=== PATIENT | female | born 1935 | race Hispanic/Latino ===

== ENCOUNTER 2018-02-03 11:23 | Emergency (ER) | payer OTHER ==
[~2018-02-03] VITALS: Ht 152.4 cm; Wt 65.3 kg
[~2018-02-03 11:23] MED LIST: AMLODIPINE BESYL5 MG PO; ASPIR 8181 MG PO; ATORVASTATIN CA20 MG PO; ATORVASTATIN PO; FUROSEMIDE40 MG PO; LEVEMIR100 UNIT/1 SC; METHIMAZOLE5 MG PO; METOPROLOL PO; METOPROLOL TART25 MG PO; NOVOLIN 70100 UNITS/ SQ; NOVOLOG SC; OMEPRAZOLE40 MG PO; PROMETHAZINE HC25 M1 PO; PYRIDOSTIGMINE60 MG PO; TAPAZOLE PO; ULTRAM50 MG PO
--- OUTSIDE RECORDS SUMMARY | 2018-02-03 11:25 | XMS REPORT | Clinical Summary ---
Author Author [facility] Address Unknown Phone Unavailable Care Team Providers Care Employee Services Manager Name Role Phone PCP Unavailable Allergies No Known Allergies Current Medications Prescription Sig. Disp. Refills Start End Date Status Date methIMAzole (TAPAZOLE) 5 Take 5 mg by mouth daily Active MG tablet . furosemide (LASIX) 20 MG Take 20 mg by mouth daily Active tablet . pyridostigmine (MESTINON) Take 60 mg by mouth 3 Active 60 mg tablet (three) times daily. insulin aspart (NOVOLOG) Inject subcutaneously 3 Active 100 unit/mL InPn (three) times daily with meals Sliding scale . insulin detemir (LEVEMIR) Inject 10 Units Active 100 unit/mL (3 mL) InPn subcutaneously nightly. injection omeprazole (PRILOSEC) 40 Take 40 mg by mouth Active MG capsule daily. metoprolol (LOPRESSOR) 25 Take 1 tablet (25 mg 60 tablet 0 06/09/19 06/09/19 MG tablet total) by mouth 2 (two) 17 18 times daily. atorvastatin (LIPITOR) 40 Take 1 tablet (40 mg 30 tablet 0 06/09/19 06/09/19 MG tablet total) by mouth daily. 17 18 aspirin 81 MG chewable Take 1 tablet (81 mg 30 tablet 0 06/09/19 06/09/19 tablet total) by mouth daily. 17 18 amLODIPine (NORVASC) 5 MG Take 1 tablet (5 mg 30 tablet 0 06/09/19 06/09/19 tablet total) by mouth daily. 17 18 Active Problems Problem Noted Date Left bundle branch block 06/06/2016 Chest pain on breathing 06/06/2016 Elevated troponin 06/06/2016 Severe sepsis (HCC) 06/06/2016 Acute renal failure (ARF) (HCC) 06/05/2016 Abdominal pain 06/04/2016 Fever 06/04/2016 Septic shock (HCC) 06/04/2016 Cholangitis 06/04/2016 Choledocholithiasis s/p ERCP, sphincterotomy 06/04/16 06/04/2016 Diabetes mellitus (HCC) Hyperlipidemia Thyroid disease Hypertension Social History Tobacco Use Types Packs/Day Years Used Date Former Smoker Sex Assigned at Date Recorded Not on file Last Filed Vital Signs Not on file Plan of Treatment Not on file Implants Implanted Type Area Upper Tier Device Expiration Model / Identifier Date Serial / Lot Stent Bili Duodenal [id number] Stents-Per [employer] 07/16/2017 [id number] / - [id number] ipheral / Implanted: Qty: 1 on 06/04/2016 by [id number] Shamir De La Rosa MD Results Not on fileafter 02/02/2017
--- OUTSIDE RECORDS SUMMARY | 2018-02-03 11:26 | XMS REPORT ---
Author [facility] Address Unknown Phone Unavailable Care Team Providers Care Tool Shaper Set Up Operator Name Role Phone CONSUELO HENRY Unavailable Unavailable Problems This patient has no known problems. Allergies, Adverse Reactions, Alerts This patient has no known allergies or adverse reactions. Medications This patient has no known medications. Results Test Description Test Time Test Comments Text Results Atomic Results Result Comments POCT-GLUCOSE METER 2016-06-09 12:41:00 POC-GLUCOSE METER (BEAKER) (test trrz=2342) 175 mg/dL 70-110 TESTED AT [place] [address] BLOOD [id number] 10:00:00* Test Item Value Reference Range Comments CULTURE (BEAKER) (test zyqu=4702) No growth in 5 days BLOOD [id number] 10:00:00* Test Item Value Reference Range Comments CULTURE (BEAKER) (test dgui=5814) No growth in 5 days HEMOGLOBIN [id number] 09:06:00* Test Item Value Reference Range Comments HEMOGLOBIN A1C (BEAKER) (test ohzv=149) 6.0 % 4.3-6.1 POCT-GLUCOSE [id number] 07:43:00* Test Item Value Reference Range Comments POC-GLUCOSE METER (BEAKER) (test lcby=8908) 110 mg/dL 70-110 TESTED AT [address] [address] CBC W/PLT COUNT & AUTO [id number] 07:16:00* Test Item Value Reference Range Comments WHITE BLOOD CELL COUNT (BEAKER) (test hdyz=877) 7.5 K/ L 4.0-10.0 RED BLOOD CELL COUNT (BEAKER) (test xanc=684) 3.03 M/ L 4.00-5.00 HEMOGLOBIN (BEAKER) (test swhz=459) 9.1 GM/DL 12.0-15.0 HEMATOCRIT (BEAKER) (test bxgc=364) 27.5 % 36.0-45.0 MEAN CORPUSCULAR VOLUME (BEAKER) (test hdhv=303) 90.8 fL 82.0-99.0 MEAN CORPUSCULAR HEMOGLOBIN (BEAKER) (test iooi=062) 29.9 pg 27.0-33.0 MEAN CORPUSCULAR HEMOGLOBIN CONC (BEAKER) (test snvz=345) 33.0 GM/DL 32.0-36.0 RED CELL DISTRIBUTION WIDTH (BEAKER) (test iniu=386) 12.0 % 10.3-14.2 PLATELET COUNT (BEAKER) (test hndy=620) 170 K/CU MM 150-430 MEAN PLATELET VOLUME (BEAKER) (test rixb=503) 7.3 fL 6.5-10.5 NUCLEATED RED BLOOD CELLS (BEAKER) (test zjjn=469) 0 /100 WBC 0-0 NEUTROPHILS RELATIVE PERCENT (BEAKER) (test clxd=321) 53 % LYMPHOCYTES RELATIVE PERCENT (BEAKER) (test ydae=822) 33 % MONOCYTES RELATIVE PERCENT (BEAKER) (test sjuj=007) 7 % EOSINOPHILS RELATIVE PERCENT (BEAKER) (test fito=190) 6 % BASOPHILS RELATIVE PERCENT (BEAKER) (test ydab=080) 1 % NEUTROPHILS ABSOLUTE COUNT (BEAKER) (test jnph=910) 3.99 K/ L 1.80-8.00 LYMPHOCYTES ABSOLUTE COUNT (BEAKER) (test umdg=149) 2.47 K/ L 1.48-4.50 MONOCYTES ABSOLUTE COUNT (BEAKER) (test wati=112) 0.55 K/ L 0.00-1.30 EOSINOPHILS ABSOLUTE COUNT (BEAKER) (test dqnb=122) 0.47 K/ L 0.00-0.50 BASOPHILS ABSOLUTE COUNT (BEAKER) (test pwhr=534) 0.05 K/ L 0.00-0.20 0.000.570.000.000.000.00HEPATIC FUNCTION [id number] 07:12:00* Test Item Value Reference Range Comments TOTAL PROTEIN (BEAKER) (test ezxu=840) 5.0 gm/dL 6.0-8.3 ALBUMIN (BEAKER) (test luzo=7382) 2.5 g/dL 3.5-5.0 BILIRUBIN TOTAL (BEAKER) (test fuzq=843) 0.6 mg/dL 0.2-1.2 BILIRUBIN DIRECT (BEAKER) (test uvhw=580) 0.3 mg/dL 0.1-0.5 ALKALINE PHOSPHATASE (BEAKER) (test hhhh=615) 116 U/L 40-150 AST (SGOT) (BEAKER) (test ckvd=559) 32 U/L 5-34 ALT (SGPT) (BEAKER) (test jgkf=179) 57 U/L 6-55 BASIC METABOLIC [id number] 07:12:00* Test Item Value Reference Range Comments SODIUM (BEAKER) (test gupd=814) 138 meq/L 136-145 POTASSIUM (BEAKER) (test lxzd=629) 3.9 meq/L 3.5-5.1 CHLORIDE (BEAKER) (test dzuh=744) 107 meq/L 98-107 CO2 (BEAKER) (test pkyb=185) 24 meq/L 22-29 BLOOD UREA NITROGEN (BEAKER) (test errs=346) 21 mg/dL 7-21 CREATININE (BEAKER) (test ftaa=825) 1.57 mg/dL 0.57-1.25 GLUCOSE RANDOM (BEAKER) (test dhoe=273) 99 mg/dL 70-105 CALCIUM (BEAKER) (test yfby=736) 8.2 mg/dL 8.4-10.2 EGFR (BEAKER) (test xfkm=2505) 32 mL/min/1.73 sq m ESTIMATED GFR IS NOT ACCURATE CREATININE CLEARANCE IN PREDICTING GLOMERULAR FILTRATION RATE. ESTIMATED GFR IS NOT APPLICABLE FOR DIALYSIS PATIENTS. POCT-GLUCOSE [id number] 21:11:00* Test Item Value Reference Range Comments POC-GLUCOSE METER (BEAKER) (test edrz=2528) 149 mg/dL 70-110 TESTED AT [address] [address] POCT-GLUCOSE [id number] 17:08:00* Test Item Value Reference Range Comments POC-GLUCOSE METER (BEAKER) (test bpsg=6500) 137 mg/dL 70-110 TESTED AT [address] [address] POCT-GLUCOSE [id number] 12:45:00* Test Item Value Reference Range Comments POC-GLUCOSE METER (BEAKER) (test jdnh=0275) 204 mg/dL 70-110 TESTED AT [address] [address] CBC W/PLT COUNT & AUTO [id number] 11:55:00* Test Item Value Reference Range Comments WHITE BLOOD CELL COUNT (BEAKER) (test wbtb=570) 7.3 K/ L 4.0-10.0 RED BLOOD CELL COUNT (BEAKER) (test ciwm=503) 2.99 M/ L 4.00-5.00 HEMOGLOBIN (BEAKER) (test ktbj=455) 8.9 GM/DL 12.0-15.0 HEMATOCRIT (BEAKER) (test rlbw=189) 26.7 % 36.0-45.0 MEAN CORPUSCULAR VOLUME (BEAKER) (test zolc=191) 89.1 fL 82.0-99.0 MEAN CORPUSCULAR HEMOGLOBIN (BEAKER) (test touq=628) 29.6 pg 27.0-33.0 MEAN CORPUSCULAR HEMOGLOBIN CONC (BEAKER) (test jahs=453) 33.2 GM/DL 32.0-36.0 RED CELL DISTRIBUTION WIDTH (BEAKER) (test petc=825) 12.8 % 10.3-14.2 PLATELET COUNT (BEAKER) (test vmma=605) 150 K/CU MM 150-430 MEAN PLATELET VOLUME (BEAKER) (test ifkv=662) 7.1 fL 6.5-10.5 NUCLEATED RED BLOOD CELLS (BEAKER) (test ionr=253) 0 /100 WBC 0-0 NEUTROPHILS RELATIVE PERCENT (BEAKER) (test plrw=480) 59 % LYMPHOCYTES RELATIVE PERCENT (BEAKER) (test hkfg=312) 27 % MONOCYTES RELATIVE PERCENT (BEAKER) (test fzlk=140) 8 % EOSINOPHILS RELATIVE PERCENT (BEAKER) (test ejlw=216) 6 % BASOPHILS RELATIVE PERCENT (BEAKER) (test tobd=934) 0 % NEUTROPHILS ABSOLUTE COUNT (BEAKER) (test qmqp=962) 4.33 K/ L 1.80-8.00 LYMPHOCYTES ABSOLUTE COUNT (BEAKER) (test pqbu=467) 1.97 K/ L 1.48-4.50 MONOCYTES ABSOLUTE COUNT (BEAKER) (test ephg=896) 0.57 K/ L 0.00-1.30 EOSINOPHILS ABSOLUTE COUNT (BEAKER) (test owel=941) 0.41 K/ L 0.00-0.50 BASOPHILS ABSOLUTE COUNT (BEAKER) (test tkqt=418) 0.03 K/ L 0.00-0.20 0.000.540.000.000.000.00(MANUAL DIFFERENTIAL)2016-06-08 11:55:00* Test Item Value Reference Range Comments TOTAL COUNTED (BEAKER) (test vxwt=2552) POCT-GLUCOSE [id number] 07:43:00* Test Item Value Reference Range Comments POC-GLUCOSE METER (BEAKER) (test waae=7677) 122 mg/dL 70-110 TESTED AT [facility] [address] [facility] [address] BASIC METABOLIC [id number] 07:20:00* Test Item Value Reference Range Comments SODIUM (BEAKER) (test ulwp=643) 139 meq/L 136-145 POTASSIUM (BEAKER) (test jeyk=732) 4.1 meq/L 3.5-5.1 CHLORIDE (BEAKER) (test ockz=085) 109 meq/L 98-107 CO2 (BEAKER) (test zewl=758) 22 meq/L 22-29 BLOOD UREA NITROGEN (BEAKER) (test clzd=737) 23 mg/dL 7-21 CREATININE (BEAKER) (test truf=575) 1.70 mg/dL 0.57-1.25 GLUCOSE RANDOM (BEAKER) (test hoks=880) 124 mg/dL 70-105 CALCIUM (BEAKER) (test zgoh=437) 8.0 mg/dL 8.4-10.2 EGFR (BEAKER) (test nsvk=6838) 29 mL/min/1.73 sq m ESTIMATED GFR IS NOT ACCURATE CREATININE CLEARANCE IN PREDICTING GLOMERULAR FILTRATION RATE. ESTIMATED GFR IS NOT APPLICABLE FOR DIALYSIS PATIENTS. HEPATIC FUNCTION [id number] 07:18:00* Test Item Value Reference Range Comments TOTAL PROTEIN (BEAKER) (test dlia=363) 5.1 gm/dL 6.0-8.3 ALBUMIN (BEAKER) (test olgn=4382) 2.6 g/dL 3.5-5.0 BILIRUBIN TOTAL (BEAKER) (test nmyc=424) 0.6 mg/dL 0.2-1.2 BILIRUBIN DIRECT (BEAKER) (test qaby=538) 0.4 mg/dL 0.1-0.5 ALKALINE PHOSPHATASE (BEAKER) (test bzym=953) 125 U/L 40-150 AST (SGOT) (BEAKER) (test suay=115) 36 U/L 5-34 ALT (SGPT) (BEAKER) (test frfy=762) 76 U/L 6-55 POCT-GLUCOSE [id number] 21:50:00* Test Item Value Reference Range Comments POC-GLUCOSE METER (BEAKER) (test sbqk=4162) 167 mg/dL 70-110 TESTED AT [address] [address] POCT-GLUCOSE [id number] 18:16:00* Test Item Value Reference Range Comments POC-GLUCOSE METER (BEAKER) (test azfw=4384) 151 mg/dL 70-110 TESTED AT [address] [address] POCT-GLUCOSE [id number] 12:17:00* Test Item Value Reference Range Comments POC-GLUCOSE METER (BEAKER) (test jhcw=6710) 148 mg/dL 70-110 TESTED AT [address] [address] POCT-GLUCOSE [id number] 08:59:00* Test Item Value Reference Range Comments POC-GLUCOSE METER (BEAKER) (test qdwy=2802) 137 mg/dL 70-110 TESTED AT [address] [address] VANCOMYCIN LEVEL, [id number] 04:58:00* Test Item Value Reference Range Comments VANCOMYCIN RANDOM (BEAKER) (test lmwj=107) 14.7 ug/mL Reference Range: No NormalsBASIC METABOLIC [id number] 04:34:00* Test Item Value Reference Range Comments SODIUM (BEAKER) (test fscr=256) 141 meq/L 136-145 POTASSIUM (BEAKER) (test ygnv=402) 3.9 meq/L 3.5-5.1 Specimen slightly hemolyzed CHLORIDE (BEAKER) (test pnqu=398) 110 meq/L 98-107 CO2 (BEAKER) (test henn=338) 24 meq/L 22-29 BLOOD UREA NITROGEN (BEAKER) (test avcm=713) 28 mg/dL 7-21 CREATININE (BEAKER) (test slli=480) 1.90 mg/dL 0.57-1.25 Specimen slightly hemolyzed GLUCOSE RANDOM (BEAKER) (test bkfq=340) 113 mg/dL 70-105 CALCIUM (BEAKER) (test gdkq=928) 7.6 mg/dL 8.4-10.2 EGFR (BEAKER) (test iont=9652) 25 mL/min/1.73 sq m ESTIMATED GFR IS NOT ACCURATE CREATININE CLEARANCE IN PREDICTING GLOMERULAR FILTRATION RATE. ESTIMATED GFR IS NOT APPLICABLE FOR DIALYSIS PATIENTS. HEPATIC FUNCTION [id number] 04:32:00* Test Item Value Reference Range Comments TOTAL PROTEIN (BEAKER) (test vkwl=652) 5.0 gm/dL 6.0-8.3 Specimen slightly hemolyzed ALBUMIN (BEAKER) (test tuxy=8399) 2.4 g/dL 3.5-5.0 Specimen slightly hemolyzed BILIRUBIN TOTAL (BEAKER) (test nkxc=807) 0.7 mg/dL 0.2-1.2 Specimen slightly hemolyzed BILIRUBIN DIRECT (BEAKER) (test cjfa=358) 0.4 mg/dL 0.1-0.5 Specimen slightly hemolyzed ALKALINE PHOSPHATASE (BEAKER) (test poon=646) 127 U/L 40-150 AST (SGOT) (BEAKER) (test ejfa=592) 61 U/L 5-34 Specimen slightly hemolyzed ALT (SGPT) (BEAKER) (test ctmy=031) 110 U/L 6-55 Specimen slightly hemolyzed [id number] 04:23:00* Test Item Value Reference Range Comments PARTIAL THROMBOPLASTIN TIME (BEAKER) (test wxcw=796) 82.8 seconds 22.5-36.0 CBC W/PLT COUNT & AUTO [id number] 04:22:00* Test Item Value Reference Range Comments WHITE BLOOD CELL COUNT (BEAKER) (test akbu=447) 8.6 K/ L 4.0-10.0 RED BLOOD CELL COUNT (BEAKER) (test thnw=956) 2.91 M/ L 4.00-5.00 HEMOGLOBIN (BEAKER) (test tyvx=651) 8.8 GM/DL 12.0-15.0 HEMATOCRIT (BEAKER) (test xkmy=674) 26.3 % 36.0-45.0 MEAN CORPUSCULAR VOLUME (BEAKER) (test zqkg=210) 90.1 fL 82.0-99.0 MEAN CORPUSCULAR HEMOGLOBIN (BEAKER) (test jfnb=299) 30.2 pg 27.0-33.0 MEAN CORPUSCULAR HEMOGLOBIN CONC (BEAKER) (test olht=594) 33.5 GM/DL 32.0-36.0 RED CELL DISTRIBUTION WIDTH (BEAKER) (test irtw=326) 12.9 % 10.3-14.2 PLATELET COUNT (BEAKER) (test pqvi=605) 148 K/CU MM 150-430 MEAN PLATELET VOLUME (BEAKER) (test rtpb=963) 7.0 fL 6.5-10.5 NUCLEATED RED BLOOD CELLS (BEAKER) (test jizg=865) 0 /100 WBC 0-0 NEUTROPHILS RELATIVE PERCENT (BEAKER) (test ttvz=012) 71 % LYMPHOCYTES RELATIVE PERCENT (BEAKER) (test qaqj=784) 22 % MONOCYTES RELATIVE PERCENT (BEAKER) (test qccp=305) 4 % EOSINOPHILS RELATIVE PERCENT (BEAKER) (test oezu=819) 3 % BASOPHILS RELATIVE PERCENT (BEAKER) (test vryt=103) 0 % NEUTROPHILS ABSOLUTE COUNT (BEAKER) (test uhqf=466) 6.11 K/ L 1.80-8.00 LYMPHOCYTES ABSOLUTE COUNT (BEAKER) (test odil=605) 1.85 K/ L 1.48-4.50 MONOCYTES ABSOLUTE COUNT (BEAKER) (test rwpi=445) 0.37 K/ L 0.00-1.30 EOSINOPHILS ABSOLUTE COUNT (BEAKER) (test sywb=540) 0.26 K/ L 0.00-0.50 BASOPHILS ABSOLUTE COUNT (BEAKER) (test silu=977) 0.02 K/ L 0.00-0.20 [id number] 00:39:00* Test Item Value Reference Range Comments PARTIAL THROMBOPLASTIN TIME (BEAKER) (test pkii=449) 76.1 seconds 22.5-36.0 POCT-GLUCOSE [id number] 23:08:00* Test Item Value Reference Range Comments POC-GLUCOSE METER (BEAKER) (test xbkv=0210) 213 mg/dL 70-110 TESTED AT [address] [address] POCT-GLUCOSE [id number] 18:05:00* Test Item Value Reference Range Comments POC-GLUCOSE METER (BEAKER) (test xqid=3419) 206 mg/dL 70-110 TESTED AT [address] [address] [id number] 17:07:00* Test Item Value Reference Range Comments PARTIAL THROMBOPLASTIN TIME (BEAKER) (test nrsn=685) 68.5 seconds 22.5-36.0 URINE [id number] 13:25:00* Test Item Value Reference Range Comments CULTURE (BEAKER) (test fkwe=9526) See comment <10,000 col/mL Gram Negative RodsPOCT-GLUCOSE [id number] 12:40:00* Test Item Value Reference Range Comments POC-GLUCOSE METER (BEAKER) (test fkcx=2003) 190 mg/dL 70-110 TESTED AT [facility] [address] [facility] [address] CBC W/PLT COUNT & AUTO [id number] 12:07:00* Test Item Value Reference Range Comments WHITE BLOOD CELL COUNT (BEAKER) (test dgmp=616) 13.7 K/ L 4.0-10.0 RED BLOOD CELL COUNT (BEAKER) (test znvx=025) 2.84 M/ L 4.00-5.00 HEMOGLOBIN (BEAKER) (test wuhs=915) 8.8 GM/DL 12.0-15.0 HEMATOCRIT (BEAKER) (test mheu=559) 25.8 % 36.0-45.0 MEAN CORPUSCULAR VOLUME (BEAKER) (test ughq=466) 91.0 fL 82.0-99.0 MEAN CORPUSCULAR HEMOGLOBIN (BEAKER) (test lcls=551) 31.0 pg 27.0-33.0 MEAN CORPUSCULAR HEMOGLOBIN CONC (BEAKER) (test mhwb=775) 34.1 GM/DL 32.0-36.0 RED CELL DISTRIBUTION WIDTH (BEAKER) (test ocei=201) 12.1 % 10.3-14.2 PLATELET COUNT (BEAKER) (test mjvb=336) 139 K/CU MM 150-430 MEAN PLATELET VOLUME (BEAKER) (test bqnm=064) 7.8 fL 6.5-10.5 NUCLEATED RED BLOOD CELLS (BEAKER) (test hesc=938) 0 /100 WBC 0-0 0.000.660.000.000.610.000.000.000.00(MANUAL DIFFERENTIAL)2016-06-06 12:07:00* Test Item Value Reference Range Comments NEUTROPHILS - REL (DIFF) (BEAKER) (test oacp=2521) 66 % LYMPHOCYTES - REL (DIFF) (BEAKER) (test ywzk=3304) 3 % MONOCYTES - REL (DIFF) (BEAKER) (test rdeu=0043) 4 % BANDS - REL (DIFF) (BEAKER) (test tlje=5852) 27 % 0-10 NEUTROPHILS - ABS (DIFF) (BEAKER) (test dnpd=3165) 9.04 K/ L 1.80-8.00 LYMPHOCYTES - ABS (DIFF) (BEAKER) (test pota=4364) 0.41 K/ L 1.48-4.50 MONOCYTES - ABS (DIFF) (BEAKER) (test wmvk=3494) 0.55 K/ L 0.00-1.30 BANDS-ABS (DIFF) (BEAKER) (test wfoe=7832) 3.7 K/ L 0.0-0.8 TOTAL COUNTED (BEAKER) (test vppl=1065) 100 BANDS + SEGMENTED NEUTROPHILS (BEAKER) (test ytqj=1661) 12.74 WBC MORPHOLOGY (BEAKER) (test nlgc=002) Normal PLT MORPHOLOGY (BEAKER) (test wnxs=124) Normal RBC MORPHOLOGY (BEAKER) (test ohjd=108) Normal [id number] 10:36:00* Test Item Value Reference Range Comments PARTIAL THROMBOPLASTIN TIME (BEAKER) (test itld=250) 49.8 seconds 22.5-36.0 POCT-GLUCOSE [id number] 08:25:00* Test Item Value Reference Range Comments POC-GLUCOSE METER (BEAKER) (test wjnr=3656) 123 mg/dL 70-110 TESTED AT [address] [address] CREATINE KINASE (CK), TOTAL AND [id number] 07:23:00* Test Item Value Reference Range Comments CREATINE KINASE TOTAL (BEAKER) (test ckiw=472) 50 U/L 29-200 CREATINE KINASE-MB (BEAKER) (test tsjn=386) 1.4 ng/mL 0.0-6.6 CREATINE KINASE-MB INDEX (BEAKER) (test csmu=599) 2.8 % Effective 03/05/2014: CK-MB Reference Range ChangeNew: 0.0-6.6 Previous: 0.0- 4.9CK-MB Reference Range:<6.7 Normal6.7-10.0 Borderline>10.0 Abnormal TROPONIN [id number] 07:20:00* Test Item Value Reference Range Comments TROPONIN I (BEAKER) (test iqds=316) 0.58 ng/mL 0.00-0.03 Effective 03/05/2014: Reference Range ChangeNew: 0.00-0.03 Previous 0.00-0.15T roponin I (TnI) levels must be interpreted in the context of the presenting symp toms and the clinical findings. Elevated TnI levels indicate myocardial damage, but are not specific for ischemic heart disease. Elevated TnI levels are seen in patients with other cardiac conditions (including myocarditis and congestive he art failure), and slight TnI elevations occur in patients with other conditions, including sepsis, renal failure, acidosis, acute neurological disease, and pers istent tachyarrhythmia.VANCOMYCIN LEVEL, [id number] 05:38:00* Test Item Value Reference Range Comments VANCOMYCIN RANDOM (BEAKER) (test lvlj=399) 23.2 ug/mL Reference Range: No [id number] 04:31:00* Test Item Value Reference Range Comments FERRITIN (BEAKER) (test zkdz=958) 94 ng/mL 5-275 Effective 03/05/2014: Reference Range ChangeNew: Male 5-275 Previous: Male 22-322 Female 5-275 Female 10-291 VITAMIN B12 AND FOLATE 2016-06-06 04:31:00* Test Item Value Reference Range Comments VITAMIN B12 (BEAKER) (test qasc=857) 540 pg/mL 213-816 FOLATE (BEAKER) (test feme=893) 7.8 ng/mL >=7.0 Effective 03/05/2014: Folate Reference Range ChangeNew: >=7.0 Previous: >=5.4 [id number] 04:18:00* Test Item Value Reference Range Comments PARTIAL THROMBOPLASTIN TIME (BEAKER) (test usah=018) 76.3 seconds 22.5-36.0 BASIC METABOLIC [id number] 04:09:00* Test Item Value Reference Range Comments SODIUM (BEAKER) (test widl=504) 140 meq/L 136-145 POTASSIUM (BEAKER) (test qjht=928) 3.7 meq/L 3.5-5.1 CHLORIDE (BEAKER) (test dopx=732) 108 meq/L 98-107 CO2 (BEAKER) (test tjxe=004) 23 meq/L 22-29 BLOOD UREA NITROGEN (BEAKER) (test hnxo=980) 36 mg/dL 7-21 CREATININE (BEAKER) (test umrv=055) 2.54 mg/dL 0.57-1.25 GLUCOSE RANDOM (BEAKER) (test teyp=639) 114 mg/dL 70-105 CALCIUM (BEAKER) (test hpnd=809) 7.4 mg/dL 8.4-10.2 EGFR (BEAKER) (test yose=6495) 18 mL/min/1.73 sq m ESTIMATED GFR IS NOT ACCURATE CREATININE CLEARANCE IN PREDICTING GLOMERULAR FILTRATION RATE. ESTIMATED GFR IS NOT APPLICABLE FOR DIALYSIS PATIENTS. IRON, TIBC, % SAT. (WITHOUT FERRITIN)2016-06-06 04:02:00* Test Item Value Reference Range Comments IRON (BEAKER) (test klfq=067) 10 ug/dL 40-160 TOTAL IRON BINDING CAPACITY (BEAKER) (test luar=491) 175 ug/dL 250-450 IRON % SATURATION (2) (BEAKER) (test ejny=4972) 6 % 20-55 HEPATIC FUNCTION [id number] 04:01:00* Test Item Value Reference Range Comments TOTAL PROTEIN (BEAKER) (test gmhk=930) 4.9 gm/dL 6.0-8.3 ALBUMIN (BEAKER) (test tizs=5361) 2.5 g/dL 3.5-5.0 BILIRUBIN TOTAL (BEAKER) (test ovsi=617) 1.0 mg/dL 0.2-1.2 BILIRUBIN DIRECT (BEAKER) (test lyag=522) 0.6 mg/dL 0.1-0.5 ALKALINE PHOSPHATASE (BEAKER) (test nyel=376) 139 U/L 40-150 AST (SGOT) (BEAKER) (test qtnr=818) 116 U/L 5-34 ALT (SGPT) (BEAKER) (test mjhd=099) 159 U/L 6-55 LACTIC ACID, VENOUS, WHOLE [id number] 03:56:00* Test Item Value Reference Range Comments LACTATE BLOOD VENOUS (2) (BEAKER) (test fjie=5395) 0.9 mmol/L 0.5-2.2 Specimen slightly hemolyzed Effective 08/20/2015: Units/Reference Range ChangeNew: 0.5-2.2 mmol/L Previous: 5 -20 mg/dLTROPONIN [id number] 01:10:00* Test Item Value Reference Range Comments TROPONIN I (BEAKER) (test qkzi=927) 0.60 ng/mL 0.00-0.03 Effective 03/05/2014: Reference Range ChangeNew: 0.00-0.03 Previous 0.00-0.15T roponin I (TnI) levels must be interpreted in the context of the presenting symp toms and the clinical findings. Elevated TnI levels indicate myocardial damage, but are not specific for ischemic heart disease. Elevated TnI levels are seen in patients with other cardiac conditions (including myocarditis and congestive he art failure), and slight TnI elevations occur in patients with other conditions, including sepsis, renal failure, acidosis, acute neurological disease, and pers istent tachyarrhythmia.CREATINE KINASE (CK), TOTAL AND [id number] 01:04:00* Test Item Value Reference Range Comments CREATINE KINASE TOTAL (BEAKER) (test vymx=540) 47 U/L 29-200 CREATINE KINASE-MB (BEAKER) (test gfnh=573) 1.5 ng/mL 0.0-6.6 CREATINE KINASE-MB INDEX (BEAKER) (test hvdn=138) 3.2 % Effective 03/05/2014: CK-MB Reference Range ChangeNew: 0.0-6.6 Previous: 0.0- 4.9CK-MB Reference Range:<6.7 Normal6.7-10.0 Borderline>10.0 Abnormal POCT-GLUCOSE [id number] 22:22:00* Test Item Value Reference Range Comments POC-GLUCOSE METER (Inktd) (test xbld=9759) 131 mg/dL 70-110 TESTED AT [facility] [address] [facility] [address] VANCOMYCIN LEVEL, [id number] 21:22:00* Test Item Value Reference Range Comments VANCOMYCIN TROUGH (BEAKER) (test kzby=693) 27.8 ug/mL 10.0-20.0 [id number] 21:17:00* Test Item Value Reference Range Comments PARTIAL THROMBOPLASTIN TIME (BEAKER) (test ncyc=173) 51.4 seconds 22.5-36.0 TROPONIN [id number] 18:55:00* Test Item Value Reference Range Comments TROPONIN I (BEAKER) (test rlsi=519) 0.63 ng/mL 0.00-0.03 Effective 03/05/2014: Reference Range ChangeNew: 0.00-0.03 Previous 0.00-0.15T roponin I (TnI) levels must be interpreted in the context of the presenting symp toms and the clinical findings. Elevated TnI levels indicate myocardial damage, but are not specific for ischemic heart disease. Elevated TnI levels are seen in patients with other cardiac conditions (including myocarditis and congestive he art failure), and slight TnI elevations occur in patients with other conditions, including sepsis, renal failure, acidosis, acute neurological disease, and pers istent tachyarrhythmia.BASIC METABOLIC [id number] 18:38:00* Test Item Value Reference Range Comments SODIUM (BEAKER) (test hrud=104) 139 meq/L 136-145 POTASSIUM (BEAKER) (test fmzu=845) 4.1 meq/L 3.5-5.1 CHLORIDE (BEAKER) (test njgl=342) 107 meq/L 98-107 CO2 (BEAKER) (test dyjv=722) 23 meq/L 22-29 BLOOD UREA NITROGEN (BEAKER) (test srdy=156) 39 mg/dL 7-21 CREATININE (BEAKER) (test infp=693) 2.79 mg/dL 0.57-1.25 GLUCOSE RANDOM (BEAKER) (test jrfj=755) 118 mg/dL 70-105 CALCIUM (BEAKER) (test etlg=035) 7.8 mg/dL 8.4-10.2 EGFR (BEAKER) (test oktk=1610) 16 mL/min/1.73 sq m ESTIMATED GFR IS NOT ACCURATE CREATININE CLEARANCE IN PREDICTING GLOMERULAR FILTRATION RATE. ESTIMATED GFR IS NOT APPLICABLE FOR DIALYSIS PATIENTS. CREATINE KINASE (CK), TOTAL AND [id number] 18:34:00* Test Item Value Reference Range Comments CREATINE KINASE TOTAL (BEAKER) (test kuzd=879) 64 U/L 29-200 CREATINE KINASE-MB (BEAKER) (test jgeu=627) 2.2 ng/mL 0.0-6.6 CREATINE KINASE-MB INDEX (BEAKER) (test qdtr=257) 3.4 % Effective 03/05/2014: CK-MB Reference Range ChangeNew: 0.0-6.6 Previous: 0.0- 4.9CK-MB Reference Range:<6.7 Normal6.7-10.0 Borderline>10.0 Abnormal POCT-GLUCOSE [id number] 18:17:00* Test Item Value Reference Range Comments POC-GLUCOSE METER (BEAKER) (test vnqn=8767) 128 mg/dL 70-110 TESTED AT [facility] [address] [facility] [address] UREA NITROGEN, RANDOM [id number] 14:00:00* Test Item Value Reference Range Comments UREA NITROGEN URINE (BEAKER) (test ybql=583) 428 mg/dL Reference Range: No NormalsCREATININE, RANDOM [id number] 13:57:00* Test Item Value Reference Range Comments CREATININE URINE (BEAKER) (test lzci=615) 65.3 mg/dL Reference Range: No NormalsSODIUM, RANDOM [id number] 13:57:00* Test Item Value Reference Range Comments SODIUM URINE (BEAKER) (test zuud=158) 40 meq/L Reference Range: No [id number] 13:24:00* Test Item Value Reference Range Comments PARTIAL THROMBOPLASTIN TIME (BEAKER) (test itvw=344) 39.6 seconds 22.5-36.0 Prior to initiating heparinPLATELET [id number] 13:22:00* Test Item Value Reference Range Comments PLATELET COUNT (BEAKER) (test svrk=996) 133 K/CU MM 150-430 CBC W/PLT COUNT & AUTO [id number] 13:13:00* Test Item Value Reference Range Comments WHITE BLOOD CELL COUNT (BEAKER) (test isbx=959) 16.6 K/ L 4.0-10.0 RED BLOOD CELL COUNT (BEAKER) (test aeeo=999) 2.71 M/ L 4.00-5.00 HEMOGLOBIN (BEAKER) (test qamm=910) 8.7 GM/DL 12.0-15.0 HEMATOCRIT (BEAKER) (test qiew=887) 25.5 % 36.0-45.0 MEAN CORPUSCULAR VOLUME (BEAKER) (test fztt=814) 93.8 fL 82.0-99.0 MEAN CORPUSCULAR HEMOGLOBIN (BEAKER) (test ibqo=824) 32.0 pg 27.0-33.0 MEAN CORPUSCULAR HEMOGLOBIN CONC (BEAKER) (test nksc=746) 34.1 GM/DL 32.0-36.0 RED CELL DISTRIBUTION WIDTH (BEAKER) (test xgom=900) 12.1 % 10.3-14.2 PLATELET COUNT (BEAKER) (test kvoj=548) 112 K/CU MM 150-430 MEAN PLATELET VOLUME (BEAKER) (test pabq=283) 8.1 fL 6.5-10.5 NUCLEATED RED BLOOD CELLS (BEAKER) (test dpgz=862) 0 /100 WBC 0-0 0.000.700.000.000.650.000.000.000.00(MANUAL DIFFERENTIAL)2016-06-05 13:13:00* Test Item Value Reference Range Comments NEUTROPHILS - REL (DIFF) (BEAKER) (test nchp=7809) 69 % LYMPHOCYTES - REL (DIFF) (BEAKER) (test qjzq=7460) 6 % MONOCYTES - REL (DIFF) (BEAKER) (test ezgm=1921) 6 % BANDS - REL (DIFF) (BEAKER) (test cobz=0019) 19 % 0-10 NEUTROPHILS - ABS (DIFF) (BEAKER) (test nsmc=7565) 11.45 K/ L 1.80-8.00 LYMPHOCYTES - ABS (DIFF) (BEAKER) (test fwil=6854) 1.00 K/ L 1.48-4.50 MONOCYTES - ABS (DIFF) (BEAKER) (test knas=5407) 1.00 K/ L 0.00-1.30 BANDS-ABS (DIFF) (BEAKER) (test nlxe=6474) 3.2 K/ L 0.0-0.8 TOTAL COUNTED (BEAKER) (test ezfw=9688) 100 BANDS + SEGMENTED NEUTROPHILS (BEAKER) (test uiyk=7901) 14.61 WBC MORPHOLOGY (BEAKER) (test avhi=950) Normal PLT MORPHOLOGY (BEAKER) (test jtpp=254) Normal RBC MORPHOLOGY (BEAKER) (test banx=105) Normal TROPONIN [id number] 12:48:00* Test Item Value Reference Range Comments TROPONIN I (BEAKER) (test msql=441) 0.61 ng/mL 0.00-0.03 Effective 03/05/2014: Reference Range ChangeNew: 0.00-0.03 Previous 0.00-0.15T roponin I (TnI) levels must be interpreted in the context of the presenting symp toms and the clinical findings. Elevated TnI levels indicate myocardial damage, but are not specific for ischemic heart disease. Elevated TnI levels are seen in patients with other cardiac conditions (including myocarditis and congestive he art failure), and slight TnI elevations occur in patients with other conditions, including sepsis, renal failure, acidosis, acute neurological disease, and pers istent tachyarrhythmia.TSH/FREE T4 IF [id number] 12:32:00* Test Item Value Reference Range Comments THYROID STIMULATING HORMONE (BEAKER) (test tvpw=814) 4.59 uIU/mL 0.35-4.94 CREATINE KINASE (CK), TOTAL AND [id number] 12:17:00* Test Item Value Reference Range Comments CREATINE KINASE TOTAL (BEAKER) (test reuf=994) 87 U/L 29-200 CREATINE KINASE-MB (BEAKER) (test stoq=569) 2.9 ng/mL 0.0-6.6 CREATINE KINASE-MB INDEX (BEAKER) (test hdha=419) 3.3 % Effective 03/05/2014: CK-MB Reference Range ChangeNew: 0.0-6.6 Previous: 0.0- 4.9CK-MB Reference Range:<6.7 Normal6.7-10.0 Borderline>10.0 Abnormal B-TYPE NATRIURETIC FACTOR (BNP)2016-06-05 12:17:00* Test Item Value Reference Range Comments B-TYPE NATRIURETIC PEPTIDE (BEAKER) (test shrc=729) 375 pg/mL 0-100 POCT-GLUCOSE [id number] 12:11:00* Test Item Value Reference Range Comments POC-GLUCOSE METER (BEAKER) (test xjpl=8944) 171 mg/dL 70-110 TESTED AT [facility] [address] [facility] [address] POCT-GLUCOSE [id number] 06:15:00* Test Item Value Reference Range Comments POC-GLUCOSE METER (BEAKER) (test xoaw=7220) 103 mg/dL 70-110 TESTED AT [facility] [address] [facility] [address] URINALYSIS W/ [id number] 05:28:00* Test Item Value Reference Range Comments COLOR (BEAKER) (test lrnc=876) Dark Yellow CLARITY (BEAKER) (test pxug=821) Hazy SPECIFIC GRAVITY UA (BEAKER) (test hzne=076) 1.015 1.001-1.035 PH UA (BEAKER) (test yvky=340) 5.0 5.0-8.0 PROTEIN UA (BEAKER) (test nenl=156) 30 mg/dL Negative GLUCOSE UA (BEAKER) (test imlk=933) Negative Negative KETONES UA (BEAKER) (test cleo=502) 10 mg/dL Negative BILIRUBIN UA (BEAKER) (test svyz=319) Positive Negative BLOOD UA (BEAKER) (test tzos=514) Trace Negative NITRITE UA (BEAKER) (test xmsn=980) Negative Negative LEUKOCYTE ESTERASE UA (BEAKER) (test gtyp=764) Large Negative UROBILINOGEN UA (BEAKER) (test zagd=877) 4.0 mg/dL 0.2-1.0 RBC UA (BEAKER) (test lobe=313) 1 /HPF WBC UA (BEAKER) (test fnhi=034) 51 /HPF Wbc clumps seen BACTERIA (BEAKER) (test gwgt=956) Few SQUAMOUS EPITHELIAL (BEAKER) (test lmly=772) 1 /HPF HYALINE CASTS (BEAKER) (test etnk=504) 5 /LPF AMORPHOUS CRYSTALS (BEAKER) (test rtuz=5322) Moderate SOURCE(BEAKER) (test tqvm=6124) Urine, Voided BASIC METABOLIC [id number] 05:13:00* Test Item Value Reference Range Comments SODIUM (BEAKER) (test vrvi=889) 136 meq/L 136-145 POTASSIUM (BEAKER) (test popo=219) 4.5 meq/L 3.5-5.1 CHLORIDE (BEAKER) (test eatq=407) 107 meq/L 98-107 CO2 (BEAKER) (test fsdy=639) 20 meq/L 22-29 BLOOD UREA NITROGEN (BEAKER) (test vunf=346) 38 mg/dL 7-21 CREATININE (BEAKER) (test nllz=584) 2.76 mg/dL 0.57-1.25 GLUCOSE RANDOM (BEAKER) (test bnfu=922) 82 mg/dL 70-105 CALCIUM (BEAKER) (test gkej=255) 7.4 mg/dL 8.4-10.2 EGFR (BEAKER) (test pkeq=8235) 16 mL/min/1.73 sq m ESTIMATED GFR IS NOT ACCURATE CREATININE CLEARANCE IN PREDICTING GLOMERULAR FILTRATION RATE. ESTIMATED GFR IS NOT APPLICABLE FOR DIALYSIS PATIENTS. Specimen slightly ictericHEPATIC FUNCTION [id number] 05:12:00* Test Item Value Reference Range Comments TOTAL PROTEIN (BEAKER) (test xrvh=865) 5.2 gm/dL 6.0-8.3 ALBUMIN (BEAKER) (test gsrq=5156) 2.7 g/dL 3.5-5.0 BILIRUBIN TOTAL (BEAKER) (test bypz=348) 2.3 mg/dL 0.2-1.2 BILIRUBIN DIRECT (BEAKER) (test gizf=848) 1.7 mg/dL 0.1-0.5 ALKALINE PHOSPHATASE (BEAKER) (test czmy=576) 159 U/L 40-150 AST (SGOT) (BEAKER) (test jzos=282) 259 U/L 5-34 ALT (SGPT) (BEAKER) (test zpjj=682) 230 U/L 6-55 Specimen slightly ictericLACTIC ACID, VENOUS, WHOLE [id number] 04:57:00* Test Item Value Reference Range Comments LACTATE BLOOD VENOUS (2) (BEAKER) (test oyip=1452) 1.0 mmol/L 0.5-2.2 Specimen slightly hemolyzed Effective 08/20/2015: Units/Reference Range ChangeNew: 0.5-2.2 mmol/L Previous: 5 -20 mg/dLPOCT-GLUCOSE [id number] 00:21:00* Test Item Value Reference Range Comments POC-GLUCOSE METER (BEAKER) (test vcrm=0124) 125 mg/dL 70-110 TESTED AT [facility] [address] [facility] [address] POCT-GLUCOSE [id number] 17:45:00* Test Item Value Reference Range Comments POC-GLUCOSE METER (BEAKER) (test quef=3838) 192 mg/dL 70-110 TESTED AT [place] [id number] [facility] [address] HEPATITIS PANEL, [id number] 12:54:00* Test Item Value Reference Range Comments HEPATITIS A IGM ANTIBODY (BEAKER) (test uwpj=617) Nonreactive Nonreactive HEPATITIS B CORE IGM ANTIBODY (BEAKER) (test mgmk=757) Nonreactive Nonreactive HEPATITIS C ANTIBODY (BEAKER) (test accn=491) Nonreactive Nonreactive HEPATITIS B SURFACE ANTIGEN (2) (BEAKER) (test tcla=2327) Nonreactive Nonreactive PROTHROMBIN [id number] 10:41:00* Test Item Value Reference Range Comments PROTIME (BEAKER) (test osgv=326) 16.1 seconds 11.7-14.7 INR (BEAKER) (test ieue=303) 1.3 <=5.9 RECOMMENDED COUMADIN/WARFARIN INR THERAPY RANGESSTANDARD DOSE: 2.0 - 3.0 Inclu pal: PROPHYLAXIS for venous thrombosis, systemic embolization; TREATMENT for génesis ous thrombosis and/or pulmonary embolus.HIGH RISK: Target INR is 2.5-3.5 for pat ients with mechanical heart valves.LACTIC ACID, VENOUS, WHOLE [id number] 08:27:00* Test Item Value Reference Range Comments LACTATE BLOOD VENOUS (2) (BEAKER) (test plqe=9491) 2.0 mmol/L 0.5-2.2 Effective 08/20/2015: Units/Reference Range ChangeNew: 0.5-2.2 mmol/L Previous: 5 -20 mg/dLSpecimen slightly ictericCBC W/PLT COUNT & AUTO [id number] 08:03:00* Test Item Value Reference Range Comments WHITE BLOOD CELL COUNT (BEAKER) (test cxms=955) 11.4 K/ L 4.0-10.0 RED BLOOD CELL COUNT (BEAKER) (test erab=175) 2.70 M/ L 4.00-5.00 HEMOGLOBIN (BEAKER) (test jkks=146) 8.2 GM/DL 12.0-15.0 HEMATOCRIT (BEAKER) (test lwra=959) 24.6 % 36.0-45.0 MEAN CORPUSCULAR VOLUME (BEAKER) (test gdkq=870) 90.9 fL 82.0-99.0 MEAN CORPUSCULAR HEMOGLOBIN (BEAKER) (test bbcr=461) 30.4 pg 27.0-33.0 MEAN CORPUSCULAR HEMOGLOBIN CONC (BEAKER) (test bdvc=916) 33.4 GM/DL 32.0-36.0 RED CELL DISTRIBUTION WIDTH (BEAKER) (test pfmm=432) 11.9 % 10.3-14.2 PLATELET COUNT (BEAKER) (test xqbe=495) 132 K/CU MM 150-430 MEAN PLATELET VOLUME (BEAKER) (test zmgr=990) 7.3 fL 6.5-10.5 NUCLEATED RED BLOOD CELLS (BEAKER) (test wgtq=524) 0 /100 WBC 0-0 0.000.770.000.000.800.000.000.000.00(MANUAL DIFFERENTIAL)2016-06-04 08:03:00* Test Item Value Reference Range Comments NEUTROPHILS - REL (DIFF) (BEAKER) (test dlto=5000) 52 % LYMPHOCYTES - REL (DIFF) (BEAKER) (test tjcj=6869) 4 % MONOCYTES - REL (DIFF) (BEAKER) (test qksg=8731) 3 % BANDS - REL (DIFF) (BEAKER) (test vvdd=5426) 41 % 0-10 NEUTROPHILS - ABS (DIFF) (BEAKER) (test ntda=2466) 5.93 K/ L 1.80-8.00 LYMPHOCYTES - ABS (DIFF) (BEAKER) (test trbx=1877) 0.46 K/ L 1.48-4.50 MONOCYTES - ABS (DIFF) (BEAKER) (test srby=6096) 0.34 K/ L 0.00-1.30 BANDS-ABS (DIFF) (BEAKER) (test izmz=9833) 4.7 K/ L 0.0-0.8 TOTAL COUNTED (BEAKER) (test nicn=0748) 100 BANDS + SEGMENTED NEUTROPHILS (BEAKER) (test assr=9256) 10.60 WBC MORPHOLOGY (BEAKER) (test sswi=820) Normal PLT MORPHOLOGY (BEAKER) (test gqal=525) Normal RBC MORPHOLOGY (BEAKER) (test etzk=028) Normal COMPREHENSIVE METABOLIC [id number] 05:52:00* Test Item Value Reference Range Comments TOTAL PROTEIN (BEAKER) (test sezf=474) 5.0 gm/dL 6.0-8.3 ALBUMIN (BEAKER) (test hgno=7590) 2.7 g/dL 3.5-5.0 ALKALINE PHOSPHATASE (BEAKER) (test ambn=325) 210 U/L 40-150 BILIRUBIN TOTAL (BEAKER) (test zgmb=394) 2.7 mg/dL 0.2-1.2 SODIUM (BEAKER) (test eeue=920) 139 meq/L 136-145 POTASSIUM (BEAKER) (test mbnb=423) 3.3 meq/L 3.5-5.1 CHLORIDE (BEAKER) (test gdgx=114) 108 meq/L 98-107 CO2 (BEAKER) (test fpci=211) 19 meq/L 22-29 BLOOD UREA NITROGEN (BEAKER) (test pkab=060) 27 mg/dL 7-21 CREATININE (BEAKER) (test erbb=850) 1.86 mg/dL 0.57-1.25 GLUCOSE RANDOM (BEAKER) (test dygz=961) 140 mg/dL 70-105 CALCIUM (BEAKER) (test qnnx=756) 7.8 mg/dL 8.4-10.2 AST (SGOT) (BEAKER) (test cgrj=081) 744 U/L 5-34 ALT (SGPT) (BEAKER) (test lizt=645) 356 U/L 6-55 EGFR (BEAKER) (test hqro=1771) 26 mL/min/1.73 sq m ESTIMATED GFR IS NOT ACCURATE CREATININE CLEARANCE IN PREDICTING GLOMERULAR FILTRATION RATE. ESTIMATED GFR IS NOT APPLICABLE FOR DIALYSIS PATIENTS. Specimen slightly ictericLACTIC ACID, VENOUS, WHOLE [id number] 05:36:00* Test Item Value Reference Range Comments LACTATE BLOOD VENOUS (2) (BEAKER) (test kzix=4201) 1.8 mmol/L 0.5-2.2 Effective 08/20/2015: Units/Reference Range ChangeNew: 0.5-2.2 mmol/L Previous: 5 -20 mg/dLSpecimen slightly ictericPOCT-LACTIC ACID, [id number] 03:11:00* Test Item Value Reference Range Comments POC-LACTIC ACID, VENOUS (BEAKER) (test gpfl=0177) 1.9 mmol/L 0.9-1.7 TESTED AT [facility] [address] [place] [address] POCT-LACTIC ACID, [id number] 01:00:00* Test Item Value Reference Range Comments POC-LACTIC ACID, VENOUS (BEAKER) (test klkc=6916) 2.7 mmol/L 0.9-1.7 TESTED AT [facility] [address] [facility] [address] [id number] 22:37:00* Test Item Value Reference Range Comments AMYLASE (BEAKER) (test rwst=586) 33 U/L 25-125 [id number] 22:37:00* Test Item Value Reference Range Comments LIPASE (BEAKER) (test uzgo=748) 36 U/L 8-78 COMPREHENSIVE METABOLIC [id number] 19:52:00* Test Item Value Reference Range Comments TOTAL PROTEIN (BEAKER) (test skjz=043) 6.5 gm/dL 6.0-8.3 ALBUMIN (BEAKER) (test kjzn=8401) 3.5 g/dL 3.5-5.0 ALKALINE PHOSPHATASE (BEAKER) (test snyx=701) 279 U/L 40-150 BILIRUBIN TOTAL (BEAKER) (test jnns=867) 1.6 mg/dL 0.2-1.2 SODIUM (BEAKER) (test ujia=241) 139 meq/L 136-145 POTASSIUM (BEAKER) (test wafs=574) 3.6 meq/L 3.5-5.1 CHLORIDE (BEAKER) (test eluk=739) 105 meq/L 98-107 CO2 (BEAKER) (test chaq=920) 20 meq/L 22-29 BLOOD UREA NITROGEN (BEAKER) (test gtju=827) 25 mg/dL 7-21 CREATININE (BEAKER) (test eqci=651) 1.49 mg/dL 0.57-1.25 GLUCOSE RANDOM (BEAKER) (test tdnm=486) 126 mg/dL 70-105 CALCIUM (BEAKER) (test svey=262) 9.0 mg/dL 8.4-10.2 AST (SGOT) (BEAKER) (test nlqw=356) 470 U/L 5-34 ALT (SGPT) (BEAKER) (test gkis=959) 158 U/L 6-55 EGFR (BEAKER) (test mrfp=4530) mL/min/1.73 sq m INSUFFICIENT CLINICAL DATA TO CALCULATE ESTIMATED GFR. CREATINE KINASE (CK), TOTAL AND [id number] 19:52:00* Test Item Value Reference Range Comments CREATINE KINASE TOTAL (BEAKER) (test zfzm=756) 44 U/L 29-200 CREATINE KINASE-MB (BEAKER) (test boaf=816) 0.7 ng/mL 0.0-6.6 CREATINE KINASE-MB INDEX (BEAKER) (test jsiy=290) 1.6 % Effective 03/05/2014: CK-MB Reference Range ChangeNew: 0.0-6.6 Previous: 0.0- 4.9CK-MB Reference Range:<6.7 Normal6.7-10.0 Borderline>10.0 Abnormal TROPONIN [id number] 19:52:00* Test Item Value Reference Range Comments TROPONIN I (BEAKER) (test nrle=018) 0.02 ng/mL 0.00-0.03 Effective 03/05/2014: Reference Range ChangeNew: 0.00-0.03 Previous 0.00-0.15T roponin I (TnI) levels must be interpreted in the context of the presenting symp toms and the clinical findings. Elevated TnI levels indicate myocardial damage, but are not specific for ischemic heart disease. Elevated TnI levels are seen in patients with other cardiac conditions (including myocarditis and congestive he art failure), and slight TnI elevations occur in patients with other conditions, including sepsis, renal failure, acidosis, acute neurological disease, and pers istent tachyarrhythmia.CBC W/PLT COUNT & AUTO [id number] 19:41:00* Test Item Value Reference Range Comments WHITE BLOOD CELL COUNT (BEAKER) (test newh=045) 3.1 K/ L 4.0-10.0 RED BLOOD CELL COUNT (BEAKER) (test ztkj=126) 3.45 M/ L 4.00-5.00 HEMOGLOBIN (BEAKER) (test txks=058) 11.0 GM/DL 12.0-15.0 HEMATOCRIT (BEAKER) (test yhtr=797) 32.4 % 36.0-45.0 MEAN CORPUSCULAR VOLUME (BEAKER) (test ebbv=669) 94.0 fL 82.0-99.0 MEAN CORPUSCULAR HEMOGLOBIN (BEAKER) (test btvk=724) 31.8 pg 27.0-33.0 MEAN CORPUSCULAR HEMOGLOBIN CONC (BEAKER) (test kiff=577) 33.8 GM/DL 32.0-36.0 RED CELL DISTRIBUTION WIDTH (BEAKER) (test oqft=879) 12.0 % 10.3-14.2 PLATELET COUNT (BEAKER) (test bipf=927) 186 K/CU MM 150-430 MEAN PLATELET VOLUME (BEAKER) (test wwci=967) 7.2 fL 6.5-10.5 NUCLEATED RED BLOOD CELLS (BEAKER) (test gtum=622) 0 /100 WBC 0-0 NEUTROPHILS RELATIVE PERCENT (BEAKER) (test wmuk=595) 87 % LYMPHOCYTES RELATIVE PERCENT (BEAKER) (test crva=166) 11 % MONOCYTES RELATIVE PERCENT (BEAKER) (test uqlf=382) 1 % EOSINOPHILS RELATIVE PERCENT (BEAKER) (test arfh=797) 2 % BASOPHILS RELATIVE PERCENT (BEAKER) (test woux=492) 0 % NEUTROPHILS ABSOLUTE COUNT (BEAKER) (test xcih=654) 2.69 K/ L 1.80-8.00 LYMPHOCYTES ABSOLUTE COUNT (BEAKER) (test qpen=835) 0.34 K/ L 1.48-4.50 MONOCYTES ABSOLUTE COUNT (BEAKER) (test zaig=628) 0.02 K/ L 0.00-1.30 EOSINOPHILS ABSOLUTE COUNT (BEAKER) (test fcry=988) 0.05 K/ L 0.00-0.50 BASOPHILS ABSOLUTE COUNT (BEAKER) (test jhun=793) 0.00 K/ L 0.00-0.20 [id number] 19:39:00* Test Item Value Reference Range Comments PROTIME (BEAKER) (test dvho=430) 14.3 seconds 11.7-14.7 INR (BEAKER) (test vvmb=564) 1.1 <=5.9 PARTIAL THROMBOPLASTIN TIME (BEAKER) (test mjdg=316) 27.4 seconds 22.5-36.0 RECOMMENDED COUMADIN/WARFARIN INR THERAPY RANGESSTANDARD DOSE: 2.0 - 3.0 Inclu pal: PROPHYLAXIS for venous thrombosis, systemic embolization; TREATMENT for génesis ous thrombosis and/or pulmonary embolus.HIGH RISK: Target INR is 2.5-3.5 for pat ients with mechanical heart valves.
[2018-02-03] MEDS ORDERED: SODIUM CHLORIDE 0.9% 1000ML 1,000 ML IV STA (11:41)
[2018-02-03] MEDS ORDERED: DIATRIZOATE MEGL/DIATRIZOA SOD 30 ML BTL PO ONE (11:56)
[2018-02-03 12:30] LABS: BASOPHILS % 0.1 % (0.0-1.0); EOSINOPHILS % 0.3 % (0.0-6.0); LYMPHOCYTES # (AUTO) 0.5 (1.0-3.2); MEAN CORPUSCULAR HEMOGLOBIN 30.5 pg (28-32); MEAN CORPUSCULAR HGB CONC 34.3 g/dL (31-35); MEAN CORPUSCULAR VOLUME 88.8 fL (81-99); MONOCYTES # (AUTO) 0.3 (0.2-0.8); MONOCYTES % 3.4 % (4.4-11.3); NEUTROPHILS # (AUTO) 6.9 (2.1-6.9); NEUTROPHILS % 89.7 % (38.7-80.0); PLATELET COUNT 121 x10e3/uL (140-360); RED BLOOD COUNT 3.94 x10e6/uL (3.6-5.1); RED CELL DISTRIBUTION WIDTH 12.6 % (11.7-14.4)
[2018-02-03 12:49] LABS: ALBUMIN 3.6 g/dL (3.5-5.0); ALBUMIN/GLOBULIN RATIO 1.2 (0.8-2.0); ANION GAP 16.7 mmol/L (8-16); CALCIUM 9.3 mg/dL (8.4-10.2); CREATININE, SERUM 1.72 mg/dL (0.57-1.11); POTASSIUM 3.7 mmol/L (3.5-5.1)
[2018-02-03 13:37] LABS: BILIRUBIN,URINE NEGATIVE (NEGATIVE); CLARITY,URINE SL CLOUDY (CLEAR); COLOR,URINE YELLOW (YELLOW); KETONES,URINE NEGATIVE (NEGATIVE); LEUKOCYTE ESTERASE ,URINE TRACE (NEGATIVE); NITRITE,URINE NEGATIVE (NEGATIVE); PROTEIN,URINE DIPSTICK TRACE (NEGATIVE); URINE UROBILINOGEN 0.2 mg/dL (0.2 - 1)
[2018-02-03 13:48] LABS: BACTERIA,URINE FEW /HPF; EPITHELIAL CELLS,URINE FEW /LPF; RENAL EPITHELIAL CELLS,URINE FEW
--- NOTE | 2018-02-03 14:01 | Diagnostic Imaging Report ---
EXAMINATION: CT of the abdomen and pelvis without contrast. TECHNIQUE: Spiral CT images of the abdomen and pelvis were performed from the lung bases to the lesser trochanters. No intravenous contrast was given per referring physician request. Coronal and sagittal reformatted images were obtained. COMPARISON: CT chest without contrast 08/15/2016 CLINICAL HISTORY:Abdominal pain DISCUSSION: ABSENCE OF INTRAVENOUS CONTRAST DECREASES SENSITIVITY FOR DETECTION OF FOCAL LESIONS AND VASCULAR PATHOLOGY. ABDOMEN/PELVIS: LOWER THORAX: Subsegmental atelectasis in the dependent lower lobes. 4-5 mm juxtapleural left lower lobe right lower lobe nodule. Coronary artery calcifications. No pleural effusion. HEPATOBILIARY:Left lobar pneumobilia status post cholecystectomy, with multiple clips in the gallbladder fossa. No focal hepatic lesion or intrahepatic biliary dilatation. SPLEEN: No splenomegaly. PANCREAS: No focal masses or ductal dilatation. ADRENALS: No adrenal nodules. KIDNEYS/URETERS: Subcentimeter hypoattenuating lesion in the right kidney is too small to further characterize though likely to represent a small cyst. No calculi, hydronephrosis, or mass lesion. PELVIC ORGANS/BLADDER: The urinary bladder is unremarkable. Uterus is not identified and has presumably been removed. No adnexal mass. PERITONEUM/RETROPERITONEUM: No ascites. No pneumoperitoneum. LYMPH NODES: No pelvic sidewall, retroperitoneal, or mesenteric lymphadenopathy. VESSELS: Limited evaluation without intravenous contrast. The abdominal aorta is not aneurysmal. Extensive atherosclerotic calcification of the abdominal aorta and major branch vessels. GI TRACT: The large bowel shows no evidence of distention or wall thickening. Gas and fecal material is noted throughout. There are a few diverticula scattered along the sigmoid colon without wall thickening or adjacent inflammatory change. The transverse colon is collapsed and poorly evaluated. The appendix appears normal. There is no small bowel dilatation to suggest obstruction. BONES AND SOFT TISSUES: No focal soft tissue abnormalities. No osseous destructive lesions. Chronic mild anterior compression deformity of L1 is unchanged compared to prior CT chest. Bone island in the left femoral head. Degenerative disc changes of the lumbar spine. IMPRESSION: No acute intra-abdominal or pelvic CT abnormalities. Small amount of left lobar pneumobilia presumably related to cholecystectomy and/or subsequent instrumentation. Sigmoid diverticulosis without evidence of diverticulitis. 4 mm right lower lobe pulmonary nodule should be assessed for stability by CT scan of the chest in one year if the patient is at high risk of malignancy. (Fleischner Society 2017 guidelines). Advanced atherosclerotic vascular disease. Signed by: Dr. Mack Liu M.D. on 02/03/2018 1:58 PM
--- NOTE | 2018-02-03 14:07 | Diagnostic Imaging Report ---
Examination: Single AP view of the chest. COMPARISON: Chest radiograph 08/12/2016, CT chest 08/14/2016 INDICATION: Abdominal pain DISCUSSION: Lungs are well-inflated. Calcified granuloma left midlung. No consolidation, pleural effusion, or pneumothorax. Stable cardiomediastinal contour. Rightward tracheal deviation shown to be a consequence of thyromegaly on comparison chest CT. Surgical clips project over the right upper quadrant of the abdomen. No acute osseous abnormality. IMPRESSION: 1. No acute cardiopulmonary abnormalities. Signed by: Dr. Mack Liu M.D. on 02/03/2018 2:04 PM
[2018-02-03] MEDS ORDERED: ACETAMINOPHEN 325 MG TAB PO ONE ×2 (15:30)
[2018-02-03] MEDS ORDERED: KEFLEX500 MG PO (15:42)
== END 2018-02-03 16:50 | disposition home or self-care (01) ==
LOC: ER 11:23
DX: R10.11 Right upper quadrant pain (principal); R10.13 Epigastric pain; Z87.891 Personal history of nicotine dependence
CPT/HCPCS: 36415; 71045; 74176; 80053; 81001; 83690; 85025; 93005; 99284

== ENCOUNTER 2020-06-11 14:56 | Emergency (ER) | payer OTHER ==
[~2020-06-11] VITALS: Ht 152.4 cm; Wt 65.3 kg
[~2020-06-11 14:56] MED LIST changes: +KEFLEX500 MG PO
[2020-06-11 18:29] LABS: BASOPHILS % 0.4 % (0.0-1.0); EOSINOPHILS # (AUTO) 0.1 (0.0-0.4); EOSINOPHILS % 1.1 % (0.0-6.0); HEMATOCRIT 34.9 % (34.2-44.1); HEMOGLOBIN 11.5 g/dL (12.0-16.0); LYMPHOCYTES # (AUTO) 1.5 (1.0-3.2); LYMPHOCYTES % 26.3 % (18.0-39.1); MEAN CORPUSCULAR HEMOGLOBIN 30.2 pg (28-32); MEAN CORPUSCULAR VOLUME 91.6 fL (81-99); MONOCYTES # (AUTO) 0.3 (0.2-0.8); NEUTROPHILS # (AUTO) 3.7 (2.1-6.9); PLATELET COUNT 157 x10e3/uL (140-360); RED BLOOD COUNT 3.81 x10e6/uL (3.6-5.1); RED CELL DISTRIBUTION WIDTH 13.1 % (11.7-14.4)
[2020-06-11 18:43] LABS: ALBUMIN 2.7 g/dL (3.5-5.0); ALBUMIN/GLOBULIN RATIO 0.8 (0.8-2.0); ANION GAP 15.7 mmol/L (8-16); CALCIUM 8.6 mg/dL (8.4-10.2); CREATININE, SERUM 1.1 mg/dL (0.57-1.11); POTASSIUM 4.7 mmol/L (3.5-5.1)
[2020-06-11] MEDS ORDERED: ONDANSETRON HCL INJ 2MG/ML 2ML 2 MG/ML VIAL IV STA (18:54)
[2020-06-11] MEDS ORDERED: MORPHINE SULFATE INJ 4 MG/ML INJ 1ML IV STA (18:54)
[2020-06-11 19:03] LABS: CREATINE KINASE MB 1.7 ng/mL (0-5.0)
[2020-06-11 19:49] VITALS: BP 173/88
== END 2020-06-11 20:47 | disposition home or self-care (01) ==
LOC: ER 15:40
DX: R53.1 Weakness (principal); R41.82 Altered mental status, unspecified; R10.30 Lower abdominal pain, unspecified; K62.89 Other specified diseases of anus and rectum; I10 Essential (primary) hypertension; E11.9 Type 2 diabetes mellitus without complications; E78.5 Hyperlipidemia, unspecified; E03.9 Hypothyroidism, unspecified; N18.9 Chronic kidney disease, unspecified; F41.9 Anxiety disorder, unspecified
CPT/HCPCS: 36415; 70450; 71045; 74176; 80053; 82550; 82553; 84484; 85025; 93005; 99284; J2270; J2405